=== PATIENT | female | born 1950 | race Caucasian/White ===

== ENCOUNTER 2020-06-19 19:59 | Inpatient (IN) | payer OTHER ==
[~2020-06-19] VITALS: Ht 167.6 cm; Wt 86.2 kg
[~2020-06-19 19:59] MED LIST: AUGMENTIN 875-1 EACH PO
[2020-06-19 20:53] LABS: HEMOGLOBIN 13.8 gm/dl (12.3-15.3); RED BLOOD COUNT 4.76 M/UL (4.00-5.10)
[2020-06-19 21:18] LABS: BUN/CREATININE RATIO 17 (0-10)
[2020-06-20 04:22] LABS: HEMOGLOBIN 12.5 gm/dl (12.3-15.3); RED BLOOD COUNT 4.56 M/UL (4.00-5.10); WHITE BLOOD COUNT 4.3 K/UL (4.5-11.0)
[2020-06-20 04:39] LABS: BUN/CREATININE RATIO 15 (0-10)
[2020-06-21 06:42] LABS: BUN/CREATININE RATIO 24 (0-10)
[2020-06-22 06:40] LABS: BUN/CREATININE RATIO 30 (0-10)
[2020-06-23 03:33] LABS: BUN/CREATININE RATIO 36 (0-10)
[2020-06-24 03:56] LABS: RED BLOOD COUNT 4.16 M/UL (4.00-5.10)
[2020-06-24 04:55] LABS: BUN/CREATININE RATIO 30 (0-10)
[2020-06-24] MEDS ORDERED: ECOTRIN81 MG PO (12:49)
[2020-06-24] MEDS ORDERED: DECADRON6 MG PO (12:49)
== END 2020-06-24 14:38 | disposition home or self-care (01) | DRG 177 ==
LOC: ER1 19:59 → CDU 21:33 → MED SURG 4 21:33
PROVIDERS: Internal Medicine; Physician Assistant; ADMIT Internal Medicine
PROC: 8E0ZXY6 Isolation (ICD-10-PCS; principal; 2020-06-19)
PROC: XW033E5 Introduction of Remdesivir Anti-infective into Peripheral Vein, Percutaneous Approach, New Technology Group 5 (ICD-10-PCS; 2020-06-19)
PROC: XW13325 Transfusion of Convalescent Plasma (Nonautologous) into Peripheral Vein, Percutaneous Approach, New Technology Group 5 (ICD-10-PCS; 2020-06-19)
DX: U07.1 COVID-19 (principal); J12.82 Pneumonia due to coronavirus disease 2019; J96.01 Acute respiratory failure with hypoxia; Z90.49 Acquired absence of other specified parts of digestive tract; Z88.8 Allergy status to other drugs, medicaments and biological substances; Z82.3 Family history of stroke; R03.0 Elevated blood-pressure reading, without diagnosis of hypertension
CPT/HCPCS: 0240U; 36415; 36600; 71045; 80048; 80053; 82550; 82553; 82803; 83735; 83874; 84484; 85025; 85027; 85610; 85652; 86140; 86900; 86901; 86927; 93005; 94664; 96374; 96375; 99285; G0378; J0360; J0456; J1100; J1650; J3475; J7030